=== PATIENT | male | born 1995 | race African-American/Black ===

== ENCOUNTER 2020-02-19 14:22 | Emergency (ER) | payer MEDICAID ==
[~2020-02-19] VITALS: Ht 139.7 cm; Wt 36.0 kg
[2020-02-19] MEDS ORDERED: IBUPROFEN 600MG TABLET PO ONE (15:30)
[2020-02-19 15:51] VITALS: BP 121/82
[2020-02-19] MEDS ORDERED: LIDOCAINE HCL/EPINEPHRINE 1%-EPI 1:100,000 20 ML VIAL INFIL ONE (16:30)
[2020-02-19] MEDS ORDERED: BACITRACIN ZINC OINT UDPKT TOP ONE (17:15)
== END 2020-02-19 17:15 | disposition home or self-care (01) ==
LOC: ER 14:22
DX: S91.012A Laceration without foreign body, left ankle, initial encounter (principal); Q05.9 Spina bifida, unspecified; Z99.3 Dependence on wheelchair; Z91.040 Latex allergy status; W45.8XXA Other foreign body or object entering through skin, initial encounter; Y93.E1 Activity, personal bathing and showering; Y92.012 Bathroom of single-family (private) house as the place of occurrence of the external cause
CPT/HCPCS: 12001; 73630; 99283; J3490